=== PATIENT | female | born 1970 | race Caucasian/White ===

== ENCOUNTER 2021-10-02 04:10 | Emergency (ER) | payer SELFPAY ==
[~2021-10-02] VITALS: Ht 162.6 cm; Wt 90.7 kg
[2021-10-02 04:44] VITALS: BP 157/87
== END 2021-10-02 08:32 | disposition left against medical advice (07) ==
LOC: EDBD 04:10 → ER 04:10
DX: R45.851 Suicidal ideations (principal); R42 Dizziness and giddiness; Z20.822 Contact with and (suspected) exposure to COVID-19; Z53.29 Procedure and treatment not carried out because of patient's decision for other reasons
CPT/HCPCS: 36415; 93005